=== PATIENT | female | born 1960 ===

== ENCOUNTER 2019-04-29 11:30 | Inpatient (IN) | payer OTHER ==
[~2019-04-29] VITALS: Ht 165.1 cm; Wt 110.7 kg
[2019-04-30] MEDS ORDERED: CYMBALTA30 MG PO (13:13)
[2019-04-30] MEDS ORDERED: COZAAR100 MG PO (13:13)
[2019-04-30] MEDS ORDERED: NORVASC10 MG PO (13:13)
[2019-04-30] MEDS ORDERED: CARDURA XL4 MG PO (13:14)
[2019-04-30] MEDS ORDERED: HYDROCHLOROTHIA25 MG PO (13:14)
[2019-04-30] MEDS ORDERED: PLAVIX75 MG PO (13:14)
[2019-04-30] MEDS ORDERED: DIALYVITE 800-1 EACH PO (13:15)
[2019-04-30] MEDS ORDERED: NEURONTIN800 MG PO (13:15)
[2019-04-30] MEDS ORDERED: [UNRECOGNIZED DRUG - OTHER] PO (13:16)
[2019-05-07] MEDS ORDERED: TREXALL7.5 MG PO (08:25)
[2019-05-10] MEDS ORDERED: PERCOCET 5-3251 EACH PO (10:44)
== END 2019-05-10 13:11 | disposition home or self-care (01) | DRG 330 ==
LOC: O/R 11:30 → SURG 05-07 07:45
PROVIDERS: ADMIT Surgery
PROC: 0DJD8ZZ Inspection of Lower Intestinal Tract, Via Natural or Artificial Opening Endoscopic (ICD-10-PCS; 2019-05-07)
PROC: 0DTN4ZZ Resection of Sigmoid Colon, Percutaneous Endoscopic Approach (ICD-10-PCS; principal; 2019-05-07 10:45)
DX: K57.32 Diverticulitis of large intestine without perforation or abscess without bleeding (principal); Z99.11 Dependence on respirator [ventilator] status; K63.89 Other specified diseases of intestine; I11.9 Hypertensive heart disease without heart failure; G47.33 Obstructive sleep apnea (adult) (pediatric); E66.01 Morbid (severe) obesity due to excess calories; M79.7 Fibromyalgia; E11.9 Type 2 diabetes mellitus without complications; Z79.4 Long term (current) use of insulin